=== PATIENT | male | born 1955 | race Two or more races ===

== ENCOUNTER 2019-06-15 14:12 | Emergency (ER) | payer SELFPAY ==
[~2019-06-15] VITALS: Ht 170.2 cm; Wt 75.0 kg
[2019-06-15 14:14] VITALS: BP 134/86
== END 2019-06-15 16:52 | disposition home or self-care (01) ==
LOC: ER 14:12
DX: R21 Rash and other nonspecific skin eruption (principal); E11.9 Type 2 diabetes mellitus without complications
CPT/HCPCS: 82962; 99283